=== PATIENT | female | born 1955 | race Caucasian/White ===

== ENCOUNTER 2016-12-09 05:46 | Day surgery (SDC) | payer OTHER ==
[2016-12-09] MEDS ORDERED: HYDROmorphone* 2 MG/ML 1 ML SYR IV SLOW PU ONE (06:30)
[2016-12-09] MEDS ORDERED: Ondansetron INJ* 2 MG/ML VIAL IV ONE (06:30)
[2016-12-09] MEDS: NS 0.9% 1000 ML* 2,000 ML IV ONE ×2 (06:36→07:40)
[2016-12-09 06:40] LABS: Hematocrit 43 % (35-47); Hemoglobin 14.4 g/dl (12.0-16.0); Mean Corpuscular HGB Conc 34 g/dl (31-36); Mean Corpuscular Hemoglobin 33 pg (27-31); Mean Corpuscular Volume 97 fL (80-97); Mean Platelet Volume 8 um3 (7.4-10.4); Red Blood Count 4.43 10^6/ul (4.0-5.4); Red Cell Distribution Width 13 % (10.5-15); White Blood Count 9.8 10^3/ul (3.5-10.8)
[2016-12-09] MEDS ORDERED: Iohexol 300* (CONTRAST) 10 ML SDV IV ONE (06:54)
[2016-12-09 06:55] LABS: ALT 18 U/L (7-52); AST 24 U/L (13-39); Albumin 4.5 g/dL (3.2-5.2); Alkaline Phosphatase 41 U/L (34-104); Anion Gap 10 mmol/L (2-11); Blood Urea Nitrogen 17 mg/dL (6-24); C Reactive Protein < 1.00 mg/L (< 5.00); CO2 Carbon Dioxide 23 mmol/L (22-32); Calcium 9.5 mg/dL (8.6-10.3); Chloride 102 mmol/L (101-111); EGFR African American 67.3 (>60); EGFR Non-African American 52.4 (>60); Globulin 2.9 g/dL (2-4); Glucose 153 mg/dL (70-100); Lipase 20 U/L (11.0-82.0); Potassium 3.7 mmol/L (3.5-5.0); Sodium 135 mmol/L (133-145); Total Protein 7.4 g/dL (6.4-8.9)
[2016-12-09] MEDS ORDERED: Ketorolac INJ* 30 MG/ML 1 ML VIAL IV PUSH ONE (07:28)
[2016-12-09] MEDS ORDERED: cefTRIAXone(*) 1 GM in NS 0.9% 50 ML* 50 ML IVPB ONE ×2 (07:30→08:12)
[2016-12-09] MEDS ORDERED: Tamsulosin CAP* 0.4 MG PO ONE (07:34)
--- NOTE | 2016-12-09 08:18 | RAD ---
Indication: Abdominal pain. Contrast: Administered 81.0 ml of OMNIPAQUE 300 mg/ml CT of the abdomen and pelvis was performed after oral and IV contrast administration. Coronal and sagittal reconstructed images were obtained. The lung bases demonstrate no pleural fluid, nodules or masses. Heart is of normal size without evidence of pericardial effusion. The dome of the liver is not imaged. Liver is normal in size. No focal lesions or intrahepatic duct dilatation noted. Gallbladder demonstrates no calcified gallstones. No pericholecystic fluid or wall thickening is identified. The pancreas demonstrates no mass or pancreatic duct dilatation. The spleen is normal in size. No adrenal masses noted. There is delayed nephrogram of the right kidney. Mild to moderate right hydronephrosis is noted. There is a calculi in the proximal right ureter measuring 9 mm. This is at the level of L3-L4. There is perinephric infiltration of fat consistent with calyceal rupture. The left kidney shows no evidence of calculi or hydronephrosis. The aorta and inferior vena cava are unremarkable. No dilated loops of bowel are noted. The colon is filled with stool. The uterus demonstrates multiple calcified fibroids. Urinary bladder is unremarkable. No free fluid is identified. IMPRESSION: THERE IS A 9 MM CALCULUS IN THE RIGHT PROXIMAL URETER AT THE LEVEL OF L3-L4. MODERATE DEGREE OF RIGHT HYDRONEPHROSIS IS NOTED. THERE IS LIKELY CALYCEAL RUPTURE WITH FLUID SURROUNDING THE RIGHT KIDNEY. MYOMATOUS CHANGES OF THE UTERUS ARE NOTED.
--- NOTE | 2016-12-09 08:21 | ED ---
Jese Perdue Aidan, scribed for Maximo Carlos MD on 12/09/16 at 0641 . Abdominal Pain/Female - HPI Summary HPI Summary: 61 y/o female presents to the ED with a complaint of acute, constant, severe (10 /10) RLQ abdominal pain that began at 0100 this morning gradually. Associated symptoms include episodes of vomiting (bilious). She denies any back pain or fever. During the onset of her pain, she took 4 Aleve, which did not alleviate much pain. She was last know well last night just before going to sleep. Pt still has her appendix and is allergic to penicillin. - History of Current Complaint Chief Complaint: EDAbdPain Stated Complaint: RIGHT LOWER ABD PAIN Time Seen by Provider: 12/09/16 06:28 Hx Obtained From: Patient, Family/Inspector Open Die - friend Hx Last Menstrual Period: 61 y/o female ?: No Onset/Duration: Gradual Onset, Lasting Hours, Still Present Timing: Constant Severity Initially: Mild Severity Currently: Severe - to severe Pain Intensity: 10 Pain Scale Used: 0-10 Numeric Location: Discrete At: RLQ Radiates: No Character: Sharp Aggravating Factor(s): Other: - unknown Alleviating Factor(s): Other: - unknown, however, Aleve did not alleviate her pain Associated Signs and Symptoms: Positive: Vomiting Allergies/Adverse Reactions: Allergies Allergy/AdvReac Type Severity Reaction Status Date / Time Penicillins Allergy Unknown Unknown Verified 12/09/16 06:08 Reaction Details PMH/Surg Hx/FS Hx/Imm Hx Musculoskeletal History: Denies: Hx Osteoporosis - Cancer History Hx Chemotherapy: No Hx Radiation Therapy: No - Immunization History Date of Tetanus Vaccine: utd Date of Influenza Vaccine: none Infectious Disease History: No Infectious Disease History: Denies: Traveled Outside the [place] in Last 30 Days - Family History Known Family History: Positive: Hypertension - Social History Occupation: Employed Full-time Lives: Alone Alcohol Use: Daily Alcohol Amount: 1-2 glasses wine with dinner Substance Use Type: Reports: None Smoking Status (MU): Never Smoked Tobacco Review of Systems Negative: Fever, Chills, Fatigue, Skin Diaphoresis Negative: Photophobia, Blurred Vision, Diplopia, Drainage, Erythema Negative: Epistaxis, Dental Pain, Sore Throat, Ear Ache, Nasal Discharge Negative: Palpitations, Chest Pain Negative: Shortness Of Breath, Cough Positive: Abdominal Pain, Vomiting. Negative: Diarrhea, Nausea Negative: burning, dysuria, discharge, frequency, flank pain, hematuria, incontinence, pain, urgency Negative: Arthralgia, Myalgia, Decreased ROM, Edema Negative: Rash, Bruising Negative: Headache, Weakness, Paresthesia, Numbness, Syncope, Slurred Speech Negative: Anxious, Depressed All Other Systems Reviewed And Are Negative: Yes Physical Exam - Summary Physical Exam Summary: Constitutional: Well-developed, Well-nourished, Alert. (+) Pain Distressed Skin: Warm, Dry HENT: Normocephalic; Atraumatic Eyes: Conjunctiva normal Neck: Musculoskeletal ROM normal neck. (-) JVD, (-) Stridor, (-) Tracheal deviation Cardio: Rhythm regular, rate normal, Heart sounds normal; Intact distal pulses; The pedal pulses are 2+ and symmetric. Radial pulses are 2+ and symmetric. (-) Murmur Pulmonary/Chest wall: Effort normal. (-) Respiratory distress, (-) Wheezes, (-) Rales Abd: Soft, (+) Tenderness, (-) Distension, (+) Guarding, (+) Rebound Musculoskeletal: (-) Edema Lymph: (-) Cervical adenopathy Neuro: Alert, Oriented x3 Psych: Mood and affect Normal Triage Information Reviewed: Yes Vital Signs On Initial Exam: Initial Vitals Temp Pulse Resp BP Pulse Ox 96.2 F 62 22 173/78 100 12/09/16 05:50 12/09/16 05:50 12/09/16 05:50 12/09/16 05:50 12/09/16 05:50 Vital Signs Reviewed: Yes - Paula Coma Scale Coma Scale Total: 15 Diagnostics - Vital Signs Vital Signs Temp Pulse Resp BP Pulse Ox 12/09/16 05:50 96.2 F 62 22 173/78 100 - Laboratory Lab Results: Lab Results 12/09/16 12/09/16 12/09/16 Range/Units 06:30 06:30 06:30 WBC 9.8 (3.5-10.8) 10^3/ul RBC 4.43 (4.0-5.4) 10^6/ul Hgb 14.4 (12.0-16.0) g/dl Hct 43 (35-47) % MCV 97 (80-97) fL MCH 33 H (27-31) pg MCHC 34 (31-36) g/dl RDW 13 (10.5-15) % Plt Count 190 (150-450) 10^3/ul MPV 8 (7.4-10.4) um3 Neut % (Auto) 90.1 H (38-83) % Lymph % (Auto) 6.1 L (25-47) % Menard % (Auto) 2.9 (1-9) % Eos % (Auto) 0.2 (0-6) % Baso % (Auto) 0.7 (0-2) % Absolute Neuts (auto) 8.9 H (1.5-7.7) 10^3/ul Absolute Lymphs (auto) 0.6 L (1.0-4.8) 10^3/ul Absolute Monos (auto) 0.3 (0-0.8) 10^3/ul Absolute Eos (auto) 0 (0-0.6) 10^3/ul Absolute Basos (auto) 0.1 (0-0.2) 10^3/ul Absolute Nucleated RBC 0.01 10^3/ul Nucleated RBC % 0.1 Sodium 135 (133-145) mmol/L Potassium 3.7 (3.5-5.0) mmol/L Chloride 102 (101-111) mmol/L Carbon Dioxide 23 (22-32) mmol/L Anion Gap 10 (2-11) mmol/L BUN 17 (6-24) mg/dL Creatinine 1.06 H (0.51-0.95) mg/dL Est GFR ( Amer) 67.3 (>60) Est GFR (Non-Af Amer) 52.4 (>60) BUN/Creatinine Ratio 16.0 (8-20) Glucose 153 H (70-100) mg/dL Lactic Acid 2.5 H* (0.5-2.0) mmol/L Calcium 9.5 (8.6-10.3) mg/dL Total Bilirubin 0.70 (0.2-1.0) mg/dL AST 24 (13-39) U/L ALT 18 (7-52) U/L Alkaline Phosphatase 41 (34-104) U/L C-Reactive Protein < 1.00 (< 5.00) mg/L Total Protein 7.4 (6.4-8.9) g/dL Albumin 4.5 (3.2-5.2) g/dL Globulin 2.9 (2-4) g/dL Albumin/Globulin Ratio 1.6 (1-3) Lipase 20 (11.0-82.0) U/L Result Diagrams: 12/09/16 06:30 12/09/16 06:30 Lab Statement: Any lab studies that have been ordered have been reviewed, and results considered in the medical decision making process. Re-Evaluation - Re-Evaluation First Eval Re-Evaluation Time: 08:10 - PAIN RELIEVED, WISHES TO BE STENTED Abdominal Pain Fem Course/Dx - Course Course Of Treatment: D/W DR. ROWE, PT WISHES TO BE STENTED, HE ADVISES 2 GM CEFTRIAXONE AND PT TO GO TO OR TODAY, NPO - Diagnoses Provider Diagnoses: Hydronephrosis with renal and ureteral calculous obstruction - Provider Notifications Instructed by Provider To: MD Will See In ED Discharge - Discharge Plan Condition: Fair Disposition: ADMITTED TO [facility] The documentation as recorded by the Jese dewey Aidan accurately reflects the service I personally performed and the decisions made by , Maximo Carlos MD.
[2016-12-09] MEDS ORDERED: HYDROmorphone* 1 MG/ML 1 ML SYR IV ONE (09:07)
[2016-12-09 09:11] LABS: Urine Bacteria 1+ (Absent); Urine Bilirubin Negative (Negative); Urine Glucose Negative (Negative); Urine Nitrite Positive (Negative)
[2016-12-09] MEDS ORDERED: HYDROmorphone* 1 MG/ML 1 ML SYR ONE (09:46)
[2016-12-09] MEDS ORDERED: fentaNYL* 50 MCG/ML 2 ML VIAL (100 MCG VIAL) ONE ×2 (09:46→11:00)
[2016-12-09] MEDS ORDERED: Midazolam* 1 MG/ML 2 ML VIAL (2 MG) ONE (09:47)
[2016-12-09] MEDS ORDERED: diPHENhydraMINE IV* 50 MG/ML 1 ml VIAL (BENADRYL) IV ONE (09:52)
[2016-12-09] MEDS ORDERED: Gentamicin ADULT (*) 40 MG/ML VIAL IVPB ONE (09:56)
[2016-12-09] MEDS ORDERED: Ketorolac INJ* 30 MG/ML 1 ML VIAL ONE (10:02)
[2016-12-09] MEDS ORDERED: Propofol* 10 MG/ML 20 ML BTL IV PUSH ONE (10:02)
[2016-12-09] MEDS ORDERED: Ondansetron INJ* 2 MG/ML VIAL ONE (10:02)
[2016-12-09] MEDS ORDERED: Lidocaine 2% PF* 5 ML VIAL ONE (10:02)
[2016-12-09] MEDS ORDERED: Iohexol 180 (CONTRAST) 10 ML SDV IV ONE (10:08)
[2016-12-09] MEDS ORDERED: PROCHLORPERAZINE INJ 5 MG/ML 2 ML VIAL IV PRN (11:42)
[2016-12-09] MEDS ORDERED: fentaNYL* 50 MCG/ML 2 ML VIAL (100 MCG VIAL) IV PRN (11:42)
[2016-12-09] MEDS ORDERED: Ondansetron INJ* 2 MG/ML VIAL IV PRN (11:42)
[2016-12-09] MEDS ORDERED: HYDROmorphone* 1 MG/ML 1 ML SYR IV PRN (11:42)
[2016-12-09] MEDS ORDERED: DiMENhydriNATE IV* 50 MG/ML VIAL IV PUSH PRN (11:42)
--- NOTE | 2016-12-09 12:11 | RAD ---
Indication: Right kidney stone. Fluoroscopic services provided for referring physician. Approximately 0.2 minutes of fluoroscopy time was used. There is placement of a right ureteral stent. 5 spot images demonstrates distended right renal pelvis. IMPRESSION: Fluoroscopic services provided for referring physician for right ureteral stent placement.
--- NOTE | 2016-12-09 12:38 | HP ---
ADMITTING HISTORY AND PHYSICAL: DATE OF ADMISSION: 12/09/16 ADMITTING DIAGNOSES: 1. Right hydronephrosis. 2. Obstructing calculus, right proximal ureter. 3. Possible associated urinary tract infection. PLANNED PROCEDURE: Right ureteral stent insertion (to be followed in near future by lithotripsy). HISTORY OF PRESENT ILLNESS: Jackelyn Wallis is a 61-year-old lady who had been treated by her senior revenue accountant for the last several months for recurrent or persistent urinary tract infections. She then presented to the emergency room with sudden onset of right-sided abdominal pain and vomiting and was noted to have a large obstructing calculus in the right proximal ureter with the urinalysis suspicious for another urinary tract infection. She is being brought in for urgent right stent insertion to be followed at some point in the future by lithotripsy once the infection has cleared. PAST MEDICAL HISTORY: Unremarkable, specifically there is no history of diabetes mellitus or any other major systemic illness. MEDICATIONS ON ADMISSION: None. ALLERGIES: PENICILLIN (not sure of nature of allergy, as patient says she has been told this ever since she was a child). PHYSICAL EXAMINATION GENERAL: Reveals a pleasant middle-aged uncomfortable-appearing lady. VITAL SIGNS: Blood pressure is 119/65, pulse 77 per minute and regular, temperature 36.8. LUNGS: Clear bilaterally. CARDIOVASCULAR: Regular rate and rhythm. S1, S2. ABDOMEN: Soft with right flank tenderness. PERTINENT LABORATORY AND DATA: The CT scan reveals a 9-10 mm calculus in the right proximal ureter with moderate right hydronephrosis and significant evidence of extravasation around the kidney secondary to calyceal rupture. Urinalysis is suspicious for urinary tract infection. PLAN/RECOMMENDATIONS: I had a detailed discussion with the patient and her daughter regarding the management of a large obstructing calculus in the right proximal ureter with associated urinary tract infection. The plan is for intravenous antibiotics and right stent insertion to be followed at some point as an outpatient by lithotripsy. CC: Matthew Wallace MD; Alejandra Gutierrez MD; J Luis Hernandez MD * [id number]/[facility] #: [id number] MTDD
[2016-12-09 13:17] VITALS: BP 112/71
[2016-12-09] MEDS ORDERED: Levofloxacin TAB* 500 MG PO ONE (14:00)
--- NOTE | 2016-12-09 15:46 | RAD ---
Indication: Postoperative stent placement. Single view of the abdomen demonstrates a right ureteral stent in place. No obvious radiopaque calculi is noted. Calcifications in the pelvis likely represent fibroids. Bowel gas pattern is unremarkable. IMPRESSION: Right ureteral stent is in place.
--- NOTE | 2016-12-10 03:19 | OP ---
DATE OF OPERATION: 12/09/16 - [facility] DATE OF : 51 SURGEON: J Luis Hernandez MD ANESTHESIOLOGIST: Dr. Carlson. ANESTHESIA: General. PRE-OP DIAGNOSES: 1. Right hydronephrosis. 2. Obstructing calculus, right proximal ureter. 3. Urinary tract infection. POST-OP DIAGNOSES: 1. Right hydronephrosis. 2. Obstructing calculus, right proximal ureter. 3. Urinary tract infection. 4. Urethral stenosis. OPERATIVE PROCEDURE: 1. Urethral dilatation. 2. Cystoscopy. 3. Right retrograde pyelogram 4. Right ureteral calculus manipulation. 5. Right stent insertion. COMPLICATIONS: None. STENTS USED: 7-Moroccan stent, right ureter. SPECIMENS: Urine from right kidney for culture and sensitivity. OPERATIVE FINDINGS: 1. Severe urethral stenosis. 2. Normal-appearing bladder. 3. Right hydronephrosis secondary to obstructing calculus, right proximal ureter. POSTOPERATIVE CONDITION: Stable. INDICATIONS: Jackelyn Wallis is a 61-year-old lady who was evaluated for an obstructing right proximal ureteral calculus and urinary tract infection. DESCRIPTION OF PROCEDURE: After induction of general anesthesia, the patient was placed in dorsal lithotomy position. Sequential compression devices were in place and functioning. Initial evaluation revealed severe urethral stenosis with some blanching of the periurethral area suggesting possible lichen sclerosus. The urethra was carefully dilated to 26-Moroccan and then cystoscopy was performed. The right and left ureteral orifices appeared unremarkable and the bladder was normal. A guidewire was introduced into the right ureter. The patient still had contrast in the right proximal collecting system from the previous CT scan and the contrast column stopped at the level of the proximal ureter at the level of the obstruction. The open-ended catheter was advanced carefully and the calculus was manipulated proximally. Once this was done, the catheter was advanced into the renal pelvis and the urine was obtained from the right kidney and sent for culture and sensitivity. A 7-Moroccan stent was then introduced and positioned under fluoroscopy with good proximal and distal positioning obtained. The patient tolerated the procedure satisfactorily and was transferred back to the recovery area in stable condition. CC: Matthew Wallace MD; Alejandra Gutierrez MD * [id number]/[facility] #: [id number] [facility]
== END 2016-12-09 09:49 | disposition home or self-care (01) ==
LOC: ED 05:46 → OR 09:49
PROVIDERS: ATTEND Urology
DX: N13.2 Hydronephrosis with renal and ureteral calculous obstruction (principal)
CPT/HCPCS: 36415; 74000; 74177; 74420; 80053; 81003; 81015; 83605; 83690; 85025; 86140; 87077; 87086; 87186; 96374; 96375; 99284; C1876; J0696; J1170; J1200; J1580; J1885; J2250; J2405; J2704; J3010; Q9967

== ENCOUNTER → 2016-12-18 09:31 | Day surgery (SDC) | payer OTHER ==
[~2016-12-18 09:31] MED LIST: Buffered Lidocaine 1% SYRIN* 3 ML/SYR SYRINGE INTRADERM ONE; Levofloxacin 500 MG IVPREMIX(* 500 MG/100 ML BAG IVPB ONE; Lidocaine 2% PF* 5 ML VIAL ONE; Midazolam* 1 MG/ML 2 ML VIAL (2 MG) ONE; Propofol* 10 MG/ML 20 ML BTL IV PUSH ONE; Sodium Citrate/Citric Acid* 15 ML UDC ONE; Sodium Citrate/Citric Acid* 15 ML UDC PO ONE; fentaNYL* 50 MCG/ML 2 ML VIAL (100 MCG VIAL) ONE
--- NOTE | 2016-12-18 11:07 | RAD ---
Indication: Preoperative assessment for shock wave lithotripsy. Comparison: December 11, 2016 Technique: Supine abdomen. REPORT AND IMPRESSION: 0.7 cm stone at the level of the mid to lower pole of the RIGHT kidney appears enlarged compared with the recent prior exam likely reflecting change in position rather than true interval growth. RIGHT ureteral stent remains in place. Calcified uterine fibroids. Unremarkable soft tissue contours.
[2016-12-18 14:06] VITALS: BP 128/72
--- NOTE | 2016-12-19 11:50 | OP ---
DATE OF OPERATION: 12/18/16 - [facility] DATE OF : [birth year] - AGE: 61 years, female. SURGEON: J Luis Hernandez MD ANESTHESIOLOGIST: Dr. Wallis. ANESTHESIA: General. PRE-OP DIAGNOSIS: Right renal calculus. POST-OP DIAGNOSIS: Right renal calculus. OPERATIVE PROCEDURE: Shockwave lithotripsy of right renal calculus. COMPLICATIONS: None. POSTOPERATIVE CONDITION: Stable. INDICATIONS: Jess Wallis is a 61-year-old lady who had been evaluated for an obstructing calculus at the right ureteropelvic junction along with a right urinary tract infection. She had undergone urgent right stent insertion and treatment of the urinary infection and is now being brought in for lithotripsy of the calculus, which had been pushed up into the right kidney at the time of stent insertion. DESCRIPTION OF PROCEDURE: After induction of general anesthesia, the patient was placed on the lithotripsy table in supine position. The calculus was localized using fluoroscopy and shockwave lithotripsy was commenced at a rate of 60 shocks per minute. After the initial 300 shocks, there was a pause in lithotripsy for several minutes to minimize any potential trauma to the kidney. Lithotripsy was then resumed and periodic imaging revealed good localization and a total of 2400 shocks were administered. The patient tolerated the procedure satisfactorily and was transferred back to the recovery area in stable condition. CC: Dr. Wallace* [id number]/[facility] #: [id number] MTDD
== END | disposition home or self-care (01) ==
LOC: OR 09:31
PROVIDERS: ATTEND Urology
DX: N13.2 Hydronephrosis with renal and ureteral calculous obstruction (principal); Z88.0 Allergy status to penicillin
CPT/HCPCS: 74000; A9270-GY; J1580; J1956; J2250; J2704; J3010

== ENCOUNTER 2017-06-21 16:35 | Emergency (ER) | payer OTHER ==
[2017-06-21 17:02] VITALS: BP 138/87
--- NOTE | 2017-06-21 17:10 | UC ---
Bite Injury/Animal HPI - HPI Summary HPI Summary: bite to distal right index finger by here own cat while brushing her teeth yesterday--- - History of Current Complaint Chief Complaint: UCBiteInjury Stated Complaint: CAT BITE Time Seen by Provider: 06/21/17 17:04 Hx Obtained From: Patient Hx Last Menstrual Period: 61 y/o female ?: No Severity Currently: Mild Severity Initially: Mild Pain Intensity: 2 Pain Scale Used: 0-10 Numeric Onset/Duration: Sudden Onset, Lasting Days - 1 Type of Bite: Pet Has Animal Been Immunized?: Yes Character: Puncture Aggravating Factor(s): Other Alleviating Factor(s): Other Associated Signs And Symptoms: Positive: Negative Hx of Bite: Provoked by: - brushing her teeth Animal Available for Observation: Yes Animal Control Notified: Yes - Allergies/Home Medications Allergies/Adverse Reactions: Allergies Allergy/AdvReac Type Severity Reaction Status Date / Time Penicillins Allergy Unknown Unknown Verified 06/21/17 16:58 Reaction Details PMH/Surg Hx/FS Hx/Imm Hx Previously Healthy: Yes - Surgical History Surgical History: Yes Surgery Procedure, Year, and Place: 12/09/16 - right ureteral stent insertion - Family History Known Family History: Positive: Hypertension - Social History Occupation: Employed Full-time Lives: Alone Alcohol Use: Daily Alcohol Amount: 1-2 glasses wine with dinner Substance Use Type: None Smoking Status (MU): Never Smoked Tobacco Review of Systems Constitutional: Negative Skin: Other - puncture wound distal right index finger Eyes: Negative ENT: Negative Respiratory: Negative Cardiovascular: Negative Gastrointestinal: Negative Genitourinary: Negative Motor: Negative Neurovascular: Negative Musculoskeletal: Negative Neurological: Negative Psychological: Negative Is Patient Immunocompromised?: No All Other Systems Reviewed And Are Negative: Yes Physical Exam Triage Information Reviewed: Yes Appearance: Well-Appearing, No Pain Distress, Well-Nourished Vital Signs: Initial Vital Signs Temp 97.8 F 06/21/17 16:59 Pulse 65 06/21/17 16:59 Resp 16 06/21/17 16:59 BP 138/87 06/21/17 16:59 Pulse Ox 100 06/21/17 16:59 Vital Signs Reviewed: Yes Eye Exam: Normal Eyes: Positive: Conjunctiva Clear ENT Exam: Normal ENT: Positive: Normal ENT inspection, Hearing grossly normal. Negative: Nasal congestion, Nasal drainage Dental Exam: Normal Neck exam: Normal Neck: Positive: Supple, Nontender Respiratory Exam: Normal Respiratory: Positive: Chest non-tender, No respiratory distress, No accessory muscle use Cardiovascular Exam: Normal Cardiovascular: Positive: RRR, Pulses Normal, Brisk Capillary Refill Abdominal Exam: Normal Musculoskeletal Exam: Normal Musculoskeletal: Positive: Strength Intact, ROM Intact, No Edema Neurological Exam: Normal Neurological: Positive: Alert, Muscle Tone Normal Psychological Exam: Normal Skin Exam: Normal Bite Injury Course/Dx - Course Course Of Treatment: pt refused tetanus updates states she is up to date but unsure of the date, Doxycycline, warm compress/soak,follow with ortho - Differential Dx/Diagnosis Differential Diagnosis/HQI/PQRI: Cellulitis, Laceration, Puncture, Superficial Infection, Deep Space Infection Provider Diagnoses: Puncture wound to right index finger Discharge - Discharge Plan Condition: Stable Disposition: HOME Prescriptions: DOXYcycline CAP(*) [DOXYcycline 100MG CAP(*)] 100 mg PO BID #20 cap Patient Education Materials: Doxycycline (By mouth), Animal Bite (ED), Warm Compress or Soak (ED) Referrals: [facility] [Provider Group]
--- NOTE | 2017-06-21 19:11 | RAD ---
INDICATION: Right index finger cat bite. TECHNIQUE: 3 views of the right index finger were obtained. FINDINGS: There is diffuse soft tissue swelling. The bones are in normal alignment. No fracture or radiopaque foreign body is seen. 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 IMPRESSION: SOFT TISSUE SWELLING, NO FRACTURE IS SEEN.
== END 2017-06-21 17:55 | disposition home or self-care (01) ==
LOC: UCEAST 16:35
DX: S61.230A Puncture wound without foreign body of right index finger without damage to nail, initial encounter (principal); W55.01XA Bitten by cat, initial encounter; Y92.9 Unspecified place or not applicable; Z88.0 Allergy status to penicillin
CPT/HCPCS: 73140; 99212; G0463

== ENCOUNTER 2017-07-10 08:45 | Emergency (ER) | payer OTHER ==
[2017-07-10 08:54] VITALS: BP 135/79
[2017-07-10] MEDS ORDERED: Sulfamethox/Trimethoprim DS 800/160* TAB PO ONE (09:14)
--- NOTE | 2017-07-10 14:41 | UC ---
Mohinder Perdue Angela, scribed for Shawanda Jade MD on 07/10/17 at 0902 . Bite Injury/Animal HPI - HPI Summary HPI Summary: This pt is a 62 y/o female presenting to [facility] c/o right thumb pain s/p cat bite yesterday. Pt reports that her thumb became red overnight. She states her thumb is also swollen. Pt notes she was in [facility] on 06/21/17 for a cat bite on her right index finger, from the same cat. She reports she was treated with doxycycline. No fever / chills. Cat was her elderly housecat, sadly now demised. Pt is right-hand dominant. Pt is allergic to penicillin, she is unsure of the reaction, was childhood rxn. Thinks her tetanus shot is UTD. - History of Current Complaint Chief Complaint: UCSkin Stated Complaint: SWOLLEN THUMB Hx Obtained From: Patient Hx Last Menstrual Period: 61 y/o female Pain Intensity: 10 Pain Scale Used: 0-10 Numeric Onset/Duration: Sudden Onset - s/p cat bite Type of Bite: Pet - cat Has Animal Been Immunized?: Yes Character: Puncture Associated Signs And Symptoms: Positive: Erythema, Swelling. Negative: Numbness /Tingling - Allergies/Home Medications Allergies/Adverse Reactions: Allergies Allergy/AdvReac Type Severity Reaction Status Date / Time Penicillins Allergy Unknown Unknown Verified 06/21/17 16:58 Reaction Details PMH/Surg Hx/FS Hx/Imm Hx Previously Healthy: Yes - see hpi Other Endocrine History: DENIES: diabetes Other Cardiovascular History: DENIES: HTN GI/ History: Kidney Stones - Surgical History Surgical History: Yes Surgery Procedure, Year, and Place: 12/09/16 - right ureteral stent insertion - Family History Known Family History: Positive: Hypertension - Social History Alcohol Use: Daily Alcohol Amount: 1-2 glasses wine with dinner Substance Use Type: None Smoking Status (MU): Never Smoked Tobacco Review of Systems Constitutional: Negative Skin: Other - swelling on right thumb Eyes: Negative ENT: Negative Respiratory: Negative Cardiovascular: Negative Gastrointestinal: Negative Genitourinary: Negative Motor: Negative Neurovascular: Negative Musculoskeletal: Other: - right thumb pain - see hpi Neurological: Negative Psychological: Negative Is Patient Immunocompromised?: No All Other Systems Reviewed And Are Negative: Yes Physical Exam Triage Information Reviewed: Yes Appearance: Well-Nourished Vital Signs: Initial Vital Signs Temp 97.7 F 07/10/17 08:50 Pulse 74 07/10/17 08:50 Resp 18 07/10/17 08:50 BP 135/79 07/10/17 08:50 Pulse Ox 100 07/10/17 08:50 Vital Signs Reviewed: Yes Eye Exam: Normal ENT Exam: Normal Respiratory Exam: Normal, Other - no dyspnea, no tachypnea, normal respiratory rate. Cardiovascular Exam: Normal Cardiovascular: Positive: Other: - heart rate regular, good general skin color, good capillary refill Abdominal Exam: Normal Abdomen Description: Positive: Nontender, No Organomegaly, Soft Bowel Sounds: Positive: Present Musculoskeletal: Positive: Strength Intact, Other: - RUE: 2 bite wounds at the volar MCP joint area with mild surrounding redness which extends midway through the thenar eminence. Thumb is swollen. Distal sensation is present. Neurological Exam: Normal - nonfocal, grossly intact Psychological Exam: Normal - conversing easily and appropriately Skin: Positive: Other - RUE: 2 bite wounds at the volar MCP joint area with mild surrounding redness which extends midway through the thenar eminence. Thumb is swollen. Distal sensation LT is present. Bite Injury Course/Dx - Course Course Of Treatment: Pt declines an X-ray at this time. Pt also declines a tetanus shot. D/w Ms. Wallis antibiotics - understandably, she is concerned about starting a new course of abx, having recently completed doxycycline. As such, will start Bactrim ds. Also probiotic encouraged. Will give first dose bactrim ds here in [place]. Reviewed the importance of seeking immediate medical attention for worse or new symptoms. - Differential Dx/Diagnosis Provider Diagnoses: Cat bite R thumb Discharge - Discharge Plan Condition: Good Disposition: HOME Prescriptions: Sulfamethox/Trimethoprim DS* [Bactrim DS 800/160 TAB*] 1 tab PO BID #19 tab Patient Education Materials: Animal Bite (ED) Referrals: [facility] [place] [place] PHYSICIAN REFERRAL [Outside] No Primary Care Phys,NOPCP [Primary Care Provider] - Additional Instructions: Please seek medical attention for worse or new problems. The documentation as recorded by the Mohinder dewey Angela accurately reflects the service I personally performed and the decisions made by me, Shawanda Jade MD.
== END 2017-07-10 09:20 | disposition home or self-care (01) ==
LOC: UCEAST 08:45
DX: S61.051A Open bite of right thumb without damage to nail, initial encounter (principal); W55.01XA Bitten by cat, initial encounter; Z88.0 Allergy status to penicillin; Y92.9 Unspecified place or not applicable
CPT/HCPCS: 99212; A9270-GY; G0463

== ENCOUNTER 2018-03-05 13:01 | Emergency (ER) | payer OTHER ==
[2018-03-05 13:33] VITALS: BP 176/90
== END 2018-03-05 13:40 | disposition left against medical advice (07) ==
LOC: UCEAST 13:01
DX: R05 Cough (principal); Z53.21 Procedure and treatment not carried out due to patient leaving prior to being seen by health care provider

== ENCOUNTER 2022-10-24 08:28 | Observation (INO) ==
[2022-10-24 09:24] LABS: ABS Basophils 0.1 10^3/ul (0-0.2); ABS Eosinophils 0.3 10^3/ul (0-0.6); ABS Lymphocytes 1.1 10^3/ul (1.0-4.8); ABS Monocytes 0.7 10^3/ul (0-0.8); ABS Neutrophils 2.3 10^3/ul (1.5-7.7); Hematocrit 40 % (35-47); Hemoglobin 13.6 g/dL (12.0-16.0); Lymphocyte % 24.8 %; Mean Corpuscular HGB Conc 34 g/dL (31-36); Mean Corpuscular Hemoglobin 33 pg (27-31); Mean Corpuscular Volume 98 fL (80-97); Mean Platelet Volume 7.1 fL (7.4-10.4); Nucleated Red Blood Cells % 0.1; Platelet Count 245 10^3/uL (150-450); Red Blood Count 4.13 10^6 /uL (3.70-4.87); Red Cell Distribution Width 13 % (10-15); White Blood Count 4.5 10^3/uL (3.5-10.8)
[2022-10-24 09:43] LABS: Activated Partial Thrombo Time 29.9 seconds (26.0-38.0); INR 0.93 (0.88-1.18)
[2022-10-24 10:01] LABS: Albumin 4.3 g/dL (3.2-5.2); Albumin/Globulin Ratio 1.8 (1-3); Calcium 9.4 mg/dL (8.6-10.3); Creatinine, Serum 0.91 mg/dL (0.51-0.95); Globulin 2.4 g/dL (2-4); HDL Cholesterol 120.5 mg/dL; Potassium 3.8 mmol/L (3.5-5.0); Total Bilirubin 0.7 mg/dL (0.2-1.0); Total Protein 6.7 g/dL (6.4-8.9); eGFR CKD-EPI 68.3 (>60)
[2022-10-24] MEDS ORDERED: Iohexol 350 (CONTRAST) 500 ML MDV IV ONE (10:14)
[2022-10-24 13:37] LABS: Erythrocyte Sed Rate 14 mm/Hr (0-29)
[2022-10-24] MEDS ORDERED: Aspirin EC 81 mg TAB.EC (enteric coated) PO ONE (14:57)
[2022-10-24] MEDS ORDERED: Enoxaparin 40 MG/0.4 ML SYR SUBCUT SCH (16:00)
[2022-10-25 06:21] LABS: ABS Basophils 0.1 10^3/ul (0-0.2); ABS Eosinophils 0.3 10^3/ul (0-0.6); ABS Lymphocytes 1.3 10^3/ul (1.0-4.8); ABS Monocytes 0.6 10^3/ul (0-0.8); ABS Neutrophils 1.8 10^3/ul (1.5-7.7); Eosinophil % 8.4 %; Hematocrit 40 % (35-47); Hemoglobin 13.3 g/dL (12.0-16.0); Lymphocyte % 31.9 %; Mean Corpuscular HGB Conc 33 g/dL (31-36); Mean Corpuscular Hemoglobin 33 pg (27-31); Mean Corpuscular Volume 98 fL (80-97); Mean Platelet Volume 7.1 fL (7.4-10.4); Platelet Count 228 10^3/uL (150-450); Red Blood Count 4.08 10^6 /uL (3.70-4.87); Red Cell Distribution Width 13 % (10-15); White Blood Count 3.9 10^3/uL (3.5-10.8)
[2022-10-25 06:39] LABS: Creatinine, Serum 0.99 mg/dL (0.51-0.95); HDL Cholesterol 108.3 mg/dL; Potassium 4.4 mmol/L (3.5-5.0); eGFR CKD-EPI 61.7 (>60)
[2022-10-25] MEDS ORDERED: Polyethylene Glycol 3350 17 GM PACKET PO SCH (11:00)
[2022-10-25] MEDS ORDERED: CMCS:Irbesartan 150 mg TAB (NF) PO SCH (11:00)
[2022-10-25 11:17] LABS: Folate 15.5 ng/mL (5.90-24.80)
[2022-10-25 11:33] VITALS: BP 131/69
== END 2022-10-25 13:58 | disposition home or self-care (01) | DRG 123 ==
LOC: ED 08:28 → INTOOBSV 15:19 → EDHOLD 15:19 → SUATTDRO 15:19 → OBSVTOIN 15:19 → MEDTELE 18:39
PROVIDERS: ADMIT Internal Medicine; ATTEND Internal Medicine